=== PATIENT | male | born 1945 | race Caucasian/White ===

== ENCOUNTER 2016-09-11 12:44 | Outpatient (CLI) ==
[2016-09-14 06:57] LABS: % FREE PSA 36.7 % (.); PSA, FREE 1.98 ng/mL
== END 2016-09-11 12:45 | disposition home or self-care (01) ==
LOC: LAB 12:44
PROVIDERS: ATTEND Urology
DX: R97.20 Elevated prostate specific antigen [PSA] (principal)
CPT/HCPCS: 36415; 84153

== ENCOUNTER 2016-11-26 13:08 | Outpatient (CLI) | END 2016-11-26 13:09 | disposition home or self-care (01) | LOC: LAB 13:08 | PROVIDERS: ATTEND Nurse Practitioner Family | DX: J02.9 Acute pharyngitis, unspecified (principal) | CPT/HCPCS: 87880 ==

== ENCOUNTER → 2017-02-18 | Outpatient (RCR) ==
--- NOTE | 2017-02-05 15:18 | RS.OPPTEV2 ---
Date of Note: 02/05/17 Visit #: 1 Date of Evaluation: 02/05/17 Payer Source: MEDICARE Treatment Diagnosis: Low back pain History of Condition/Mechanism of Injury:: Patient reports having low back pain for over 15 years. States pain has been worse recently due to performing more lifting than he has been used to. 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 Prior Level of Function.....Patient was independent with: ADL's, Self Care, Ambulation/Mobility, Community Integration/Access Level of Function: Independent with all ADL's. Functional Limitations: Sleep, Self Care, ADL's, Standing, Bending, Squatting, Ambulation, Community Access/Integration Current Subjective/complaints:: Patient reports low back pain, more towards the left side. States he has not had any LE symptoms of pain, tingling, or weakness. States he does have more discomfort in the low back with prolonged driving, standing, and following any lifting. States he tolerates walking fine. He sometimes uses a heating pad at home. He has not been to a Chiropractor recently. Medical History Medical History: Cancer Medical History Comments:: Leukemia with stem cell transplant, over 5 years ago. Surgical History: Knee Replacement (partial knee replacement) Surgical History Comments:: Procedure to cauterize nerves off lumbar spine 12- 18 months ago- per patient. Smoking Status: Former smoker Hx Home Medications: Takes Tylenol PRN. Patient's Goals: His goal is to get relief of low back pain. Pain Assessment - Pain Description Pain Location: low back Pain Description: soreness Current Pain Intensity: 3/10 Worst Pain Intensity: 8/10 Functional Outcome Measure Oswestry LBP: 32 - G Codes & Severity Modifier G Codes & Modifier: Mobility current CJ. Mobility goal CH Source of G Code score: Oswestry LBP scale Observation - Observation Posture: Scapula Asymmetry (right scapula higher.) Comments: Demonstrates right rotation along lumbar spine. Gait - Gait Pattern General Gait Pattern Observation: No Deviations/Normal - ROM Lumbar Flexion: Hand reach to Mid-Shins Sidebending to Left: Reach to Lateral Joint Line Sidebending to Right: Reach to Lateral Joint Line Lumbar Spine ROM Limitations: Soft Tissue Tightness Comments: Lumbar extension is WFL's. Demonstrates hypomobility of lumbar spine with flexion. Reports no increased pain with ROM. - Strength Trunk Rotation: 4+ Good + Comments: LE strength is 5/5. - Special Tests MEERA Test: Negative Left, Negative Right SLR Test: Negative Left, Negative Right Seated Dural Stretch Test: Negative Left, Negative Right SI Joint Compression: Negative Comments: Right hip is more limited in ROM with MEERA's, but does not elicit pain. Palpation Comments:: Tenderness reported along the left side of the lumbosacral junction. Reports no pain with mobilization to the sacrum or specifically over either SI joint. Demonstrates moderate muscle guarding along bilateral lumbar paraspinals. Sensation - Sensation Right Lower Extremity: Intact/Normal Left Lower Extremity: Intact/Normal Additional Comments: Additional Comments: Right SLR in supine to 35-40 degrees, left SLR 40-45 degrees. Interventions - Exercise/Activities/Manual Therapy Exercises/Activities: Patient instructed in HS and Piriformis stretch for HEP. Manual Therapy: Na HOME EXERCISE PROGRAM: Hamstring and piriformis stretch - Charges Total Direct Minutes: 40 mins Total Treatment Time: 40 mins Procedures billed for this date of service:: EVAL Low Assessment Assessment: Patient presents to therapy with a diagnosis of low back pain. Reports worse pain over the last few months due to more lifting activities. He demonstrates good strength, but limited flexibility in the lumbar spine, hips, and HS. He demonstrates good potential to benefit from stretching to gain increased flexibility and decrease pain in the low back. He will also benefit from education in back safety and proper lifting techniques. Patient Education: Education of diagnosis, Body/Joint mechanics, Home Exercise Program, Education of Plan of Care Rehab Potential: Good Short Term Goals Goal #1: Patient will display independence with home exercise program. Goal to be met by: 02/19/17 Goal #2: SLR bilaterally 55-60 degrees. Goal to be met by: 02/19/17 Goal #3: Back pain <3/10 at worst. Goal to be met by: 02/19/17 Goal #4: Lumbar spine will demonstrate minimal right rotation. Goal to be met by: 02/19/17 Alf Goals Goal #1: Pt knows HEP and to continue ex's to maintain functional level at D/C. Goal to be met by: 03/17/17 Goal #2: Score on Oswestry LBP scale improved to 12. Goal to be met by: 03/17/17 Goal #3: Pt will tolerate prolonged standing or sitting with minimal back pain. Goal to be met by: 03/17/17 Goal #4: Pt to demonstrate good understanding of back safety and proper lifting. Goal to be met by: 03/17/17 Plan - Treatment to be Provided Procedures: Therapeutic Exercises, Therapeutic Activity, Manual Therapy, Patient Education Modalities: Electrical Stimulation, Ultrasound/Phonophoresis, Cryotherapy, Hot Packs, Mechanical Traction - Treatment Plan Frequency: 3 X week Duration: 4 weeks ORDER # VISITS AND/OR THROUGH DATE: 03/17/17 - Treatment Code (1) Low back pain Code(s): M54.5 - LOW BACK PAIN Qualifiers: Chronicity: unspecified Back pain laterality: unspecified Sciatica presence: without sciatica Qualified Code(s): M54.5 - Low back pain
--- NOTE | 2017-02-09 14:16 | RS.OPPTDN ---
Subjective Date of Note: 02/09/17 Visit #: 2 Date of Evaluation: 02/05/17 Payer Source: MEDICARE Treatment Diagnosis: Low back pain Current Subjective/complaints:: Patent reports having to drive approximately 340 miles out of town a couple of days ago,returned yesterday,and tolerated it better than expected.He also reports the L side of the back generally bothers him more than the R. Pain Assessment - Pain Description Pain Location: lumbar Pain Description: Dull, Aching Current Pain Intensity: not rated Other Comments regarding Pain:: " not too bad today " - Treatment Modality: Electrical Stim Unattended Parameters/Method Applied: 20 mins. high volt to lumbar ,channel 1 @ 115 - 125 pv to mid back,channel 2 @ 165 - 200 pv. Patient Position: Prone - Heat/Cryotherapy Treatment: Hot Pack (concurrent with e-stim) Interventions - Exercise/Activities/Manual Therapy Exercises/Activities: 35 mins. total pf pelvic tilts,SKTC,DKTC,90/90 hamstring stretches,resisted hip flexion,piriformis stretches,isometric hip abd / add.Patient education for body mechanics and low back protection. Total minutes of Exercise: 35 Manual Therapy: Na Total minutes of Manual Therapy: 0 HOME EXERCISE PROGRAM: Hamstring and piriformis stretch,SKTC,DKTC,pelvic tilts. - Charges Total Direct Minutes: 35 Total Treatment Time: 55 Procedures billed for this date of service:: hp,e-stim,ex 2 Assessment: Patient has good hamstring extensibility bilaterally.He reports some L lumbar soreness with trunk rotation today,but no sharp pain with any exercise.He is attentive and motivated to improve. Patient Education: Education of diagnosis, Body/Joint mechanics, Home Exercise Program, Home Safety, Activity Modification, Education of Plan of Care Patient demonstrates compliance with HEP?: Yes Short Term Goals Goal #1: Patient will display independence with home exercise program. Goal to be met by: 02/19/17 Progress towards Goal:: Progressing Goal #2: SLR bilaterally 55-60 degrees. Goal to be met by: 02/19/17 Progress towards Goal:: Progressing Goal #3: Back pain <3/10 at worst. Goal to be met by: 02/19/17 Progress towards Goal:: Progressing Goal #4: Lumbar spine will demonstrate minimal right rotation. Goal to be met by: 02/19/17 Assisted Goals Goal #1: Pt knows HEP and to continue ex's to maintain functional level at D/C. Goal to be met by: 03/17/17 Progress towards goal: Progressing Goal #2: Score on Oswestry LBP scale improved to 12. Goal to be met by: 03/17/17 Goal #3: Pt will tolerate prolonged standing or sitting with minimal back pain. Goal to be met by: 03/17/17 Goal #4: Pt to demonstrate good understanding of back safety and proper lifting. Goal to be met by: 03/17/17 Progress towards goal: Progressing Plan PLAN OF CARE EXPIRES ON:: 03/17/17 ORDER # VISITS AND/OR THROUGH DATE: 03/17/17 PLAN: Increased core strength and improved body mechanics to protect low back.
--- NOTE | 2017-02-12 11:17 | RS.OPPTDN ---
Subjective Date of Note: 02/12/17 Visit #: 3 Date of Evaluation: 02/05/17 Payer Source: MEDICARE Treatment Diagnosis: Low back pain Current Subjective/complaints:: Patient reports minimal pain this morning. Pain Assessment - Pain Description Pain Description: Dull Current Pain Intensity: not rated - Treatment Modality: Electrical Stim Unattended Parameters/Method Applied: 20 mins. high volt to back ,channel 1 @ 125 pv , channel 2 @ 105 pv. Patient Position: Supine - Heat/Cryotherapy Treatment: Hot Pack (concurrent with e-stim) Interventions - Exercise/Activities/Manual Therapy Exercises/Activities: 20 mins. total , leg press PRE's x 15 reps @ 60 #,75 #, 90 #.Calf - raises @ 45 # x 15 reps.HEP review of stretches done at previous sessions. Total minutes of Exercise: 20 Manual Therapy: Na Total minutes of Manual Therapy: 0 HOME EXERCISE PROGRAM: Hamstring and piriformis stretch,SKTC,DKTC,pelvic tilts. - Charges Total Direct Minutes: 20 Total Treatment Time: 40 Procedures billed for this date of service:: hp,e-stim, ex 1 Assessment: Patient tolerates resistive exercises today without back pain present.He has good understanding of HEP. Patient Education: Body/Joint mechanics, Home Exercise Program, Education of Plan of Care Patient demonstrates compliance with HEP?: Yes Short Term Goals Goal #1: Patient will display independence with home exercise program. Goal to be met by: 02/19/17 Progress towards Goal:: Progressing Goal #2: SLR bilaterally 55-60 degrees. Goal to be met by: 02/19/17 Progress towards Goal:: Progressing Goal #3: Back pain <3/10 at worst. Goal to be met by: 02/19/17 Progress towards Goal:: Progressing Goal #4: Lumbar spine will demonstrate minimal right rotation. Goal to be met by: 02/19/17 Long-Term Goals Goal #1: Pt knows HEP and to continue ex's to maintain functional level at D/C. Goal to be met by: 03/17/17 Progress towards goal: Progressing Goal #2: Score on Oswestry LBP scale improved to 12. Goal to be met by: 03/17/17 Goal #3: Pt will tolerate prolonged standing or sitting with minimal back pain. Goal to be met by: 03/17/17 Progress towards goal: Progressing Goal #4: Pt to demonstrate good understanding of back safety and proper lifting. Goal to be met by: 03/17/17 Progress towards goal: Progressing Plan PLAN OF CARE EXPIRES ON:: 03/17/17 ORDER # VISITS AND/OR THROUGH DATE: 03/17/17 PLAN: Continue PT to decrease back pain for improved tolernce to driving and other ADL's.
--- NOTE | 2017-02-15 11:34 | RS.OPPTDN ---
Subjective Date of Note: 02/15/17 Visit #: 4 Date of Evaluation: 02/05/17 Payer Source: MEDICARE Treatment Diagnosis: Low back pain Current Subjective/complaints:: Patient says his pain has been low in his back the last few days. Denies any soreness into his back related to beginning the leg press, but does admit sorenss to his legs. Pain Assessment - Pain Description Pain Location: occasional soreness dependent on activity - Treatment Modality: Electrical Stim Unattended Parameters/Method Applied: hivolt 4 large pads, 2 on the L lumbar paraspinals @ 140-165 pk volts and 2 on R @ 120-135 pk volts x 20 mins Patient Position: Supine - Heat/Cryotherapy Treatment: Hot Pack Interventions - Exercise/Activities/Manual Therapy Exercises/Activities: 20 mins. total passive stretching of HS, piriformis, and fig 4 bilaterally x 3. Isometrics for hip abd/add/flex x 5 in hooklying. Leg presses 15#progressing to 30, 45, 60, 75, and 90# x 10 reps. Manual Therapy: Na HOME EXERCISE PROGRAM: Hamstring and piriformis stretch,SKTC,DKTC,pelvic tilts. - Charges Total Direct Minutes: 20 Total Treatment Time: 40 Procedures billed for this date of service:: hp, estim (u), ex Assessment: Patient maintaining low level back pain currently, but does fluctuate with particular activity. He was able to travel 12 hours (6 hours to/ from [place] over the weekend) without the increase in pain he anticipated. Patient demo good resistance with all isometrics and performing progressive leg press well. Patient Education: Home Exercise Program Patient demonstrates compliance with HEP?: Yes Short Term Goals Goal #1: Patient will display independence with home exercise program. Goal to be met by: 02/19/17 Progress towards Goal:: Progressing Goal #2: SLR bilaterally 55-60 degrees. Goal to be met by: 02/19/17 Progress towards Goal:: Progressing Goal #3: Back pain <3/10 at worst. Goal to be met by: 02/19/17 Progress towards Goal:: Progressing Goal #4: Lumbar spine will demonstrate minimal right rotation. Goal to be met by: 02/19/17 Ecommerce Manager Goals Goal #1: Pt knows HEP and to continue ex's to maintain functional level at D/C. Goal to be met by: 03/17/17 Progress towards goal: Progressing Goal #2: Score on Oswestry LBP scale improved to 12. Goal to be met by: 03/17/17 Goal #3: Pt will tolerate prolonged standing or sitting with minimal back pain. Goal to be met by: 03/17/17 Progress towards goal: Progressing Goal #4: Pt to demonstrate good understanding of back safety and proper lifting. Goal to be met by: 03/17/17 Progress towards goal: Progressing Plan PLAN OF CARE EXPIRES ON:: 03/17/17 ORDER # VISITS AND/OR THROUGH DATE: 03/17/17 PLAN: Patient to continue for stretching and modalities prn for LBP and improve trunk stability.
--- NOTE | 2017-02-18 13:34 | RS.OPPTDN ---
Subjective Date of Note: 02/18/17 Visit #: 5 Date of Evaluation: 02/05/17 Payer Source: MEDICARE Treatment Diagnosis: Low back pain Current Subjective/complaints:: Patient says his knee has been bothering him and feels it may be related to leg press. He states he needs to leave early today due to having a procedure this afternoon. Pain Assessment - Pain Description Pain Location: Increased soreness to LEs - Treatment Modality: Electrical Stim Unattended Parameters/Method Applied: hivolt 2 large pads to L lumbar paraspinals @ 115 pk volts and 2 large to the R @ 100 pk volts x 20 mins Patient Position: Supine - Heat/Cryotherapy Treatment: Hot Pack (with estim) Interventions - Exercise/Activities/Manual Therapy Exercises/Activities: 10 mins. total passive stretching of HS, piriformis, and fig 4 bilaterally x 3. Isometrics for hip abd/add/flex x 5 in hooklying. Omitted Leg press due to c/o's and patient requesting to leave early. Manual Therapy: Na HOME EXERCISE PROGRAM: Hamstring and piriformis stretch,SKTC,DKTC,pelvic tilts. - Charges Total Direct Minutes: 10 Total Treatment Time: 30 Procedures billed for this date of service:: hp, estim (un), ex Assessment: Patient presents with increased soreness to the LE's he feels is related to progressing Leg press. No increased weight was placed last session from previous visits, but did omit today and patient was leaving early to have a minor procedure. Patient wishes to hold all next week from therapy to heal. Patient Education: Home Exercise Program, Activity Modification Patient demonstrates compliance with HEP?: Yes Short Term Goals Goal #1: Patient will display independence with home exercise program. Goal to be met by: 02/19/17 Progress towards Goal:: Progressing Goal #2: SLR bilaterally 55-60 degrees. Goal to be met by: 02/19/17 Progress towards Goal:: Progressing Goal #3: Back pain <3/10 at worst. Goal to be met by: 02/19/17 Progress towards Goal:: Progressing Goal #4: Lumbar spine will demonstrate minimal right rotation. Goal to be met by: 02/19/17 Progress towards Goal:: Progressing Correction Goals Goal #1: Pt knows HEP and to continue ex's to maintain functional level at D/C. Goal to be met by: 03/17/17 Progress towards goal: Progressing Goal #2: Score on Oswestry LBP scale improved to 12. Goal to be met by: 03/17/17 Goal #3: Pt will tolerate prolonged standing or sitting with minimal back pain. Goal to be met by: 03/17/17 Progress towards goal: Progressing Goal #4: Pt to demonstrate good understanding of back safety and proper lifting. Goal to be met by: 03/17/17 Progress towards goal: Progressing Plan PLAN OF CARE EXPIRES ON:: 03/17/17 ORDER # VISITS AND/OR THROUGH DATE: 03/17/17 PLAN: hold next week and patient will contact us to continue once he's healed from procedure.
== END ==
PROVIDERS: ATTEND Family Medicine
DX: M54.5 Low back pain (principal)

== ENCOUNTER 2017-02-24 10:30 | Outpatient (CLI) ==
[2017-02-24 10:54] LABS: HEMATOCRIT 38.2 % (42.0-52.0); HEMOGLOBIN 12.8 g/dl (14.0-18.0); MEAN CORPUSCULAR HEMOGLOBIN 32.3 pg (27.0-31.0); MEAN CORPUSCULAR HGB CONC 33.5 (31.8-35.4); MEAN CORPUSCULAR VOLUME 96.5 fl (80.0-94.0); RED BLOOD COUNT 3.96 10^6/ul (4.70-6.10); WHITE BLOOD COUNT 6.07 K/ul (4.2-10.2)
[2017-02-24 10:59] LABS: BILIRUBIN,URINE Negative (NEGATIVE); KETONES,URINE Negative (NEGATIVE); LEUKOCYTE ESTERASE ,URINE Negative (NEGATIVE); NITRITE,URINE Negative (NEGATIVE); PH,URINE 6.5 (5-9); PROTEIN,URINE Negative (NEGATIVE); URINE, BLOOD Negative (NEGATIVE)
[2017-02-24 11:05] LABS: ADD URINE MICROSCOPIC NO
[2017-02-24 11:32] LABS: ALBUMIN 3.4 g/dL (3.4-5.0); ALBUMIN/GLOBULIN RATIO 0.87; ANION GAP 17.1; BILIRUBIN,TOTAL 0.5 mg/dL (0.00-1.20); BUN/CREATININE RATIO 17.85; CALCIUM 9.6 mg/dL (8.2-10.2); CREATININE 1.68 mg/dL (0.60-1.10); MAGNESIUM 1.9 mg/dL (1.7-2.2); PHOSPHORUS 2.9 mg/dL (2.3-3.7); POTASSIUM 4.1 mmol/L (3.5-5.1); TOTAL PROTEIN 7.3 g/dL (5.8-8.1); URIC ACID 4.6 mg/dL (2.6-7.2)
== END 2017-02-24 10:31 | disposition home or self-care (01) ==
LOC: LAB 10:30
PROVIDERS: ATTEND Nurse Practitioner
DX: N18.3 Chronic kidney disease, stage 3 (moderate) (principal); E55.9 Vitamin D deficiency, unspecified
CPT/HCPCS: 36415; 80053; 81001; 82306; 82570; 83735; 83970; 84100; 84156; 84550; 85027

== ENCOUNTER 2017-03-18 10:00 | Outpatient (RCR) ==
--- NOTE | 2017-03-02 11:59 | RS.OPPTDN ---
Subjective Date of Note: 03/02/17 Visit #: 6 Date of Evaluation: 02/05/17 Payer Source: MEDICARE Treatment Diagnosis: Low back pain Current Subjective/complaints:: Patient says he is still getting around slowly and sore at the L low back from recent procedure. He says he had leaned over to pick something up off of the floor and felt a pull in his back. Pain Assessment - Pain Description Pain Location: L low back > R - Treatment Modality: Electrical Stim Unattended Parameters/Method Applied: hivolt 4 large pads L controlled @ 110 and 105 pk volts for the R x 20 mins Patient Position: Supine - Heat/Cryotherapy Treatment: Hot Pack (mid to low back with estim) Interventions - Exercise/Activities/Manual Therapy Exercises/Activities: 15 mins. total passive stretching of HS, piriformis, and fig 4 bilaterally x 3. Isometrics for hip abd/add/flex x 10 in hooklying. Leg presses beginning at 30# working up to 70# x 15 each. Manual Therapy: Na HOME EXERCISE PROGRAM: Hamstring and piriformis stretch,SKTC,DKTC,pelvic tilts. - Charges Timed Code Treatment Minutes: 15 Total Treatment Time: 35 Procedures billed for this date of service:: hp, estim (un), ex Assessment: Patient resumed routine exercises, but with rests due to having recent procedure and having 1+ week off from therapy. He did have an increase in soreness to the L LB. Patient Education: Education of diagnosis, Body/Joint mechanics, Home Exercise Program Patient demonstrates compliance with HEP?: Yes Short Term Goals Goal #1: Patient will display independence with home exercise program. Goal to be met by: 02/19/17 Progress towards Goal:: Progressing Goal #2: SLR bilaterally 55-60 degrees. Goal to be met by: 02/19/17 Progress towards Goal:: Progressing Goal #3: Back pain <3/10 at worst. Goal to be met by: 02/19/17 Progress towards Goal:: Progressing Goal #4: Lumbar spine will demonstrate minimal right rotation. Goal to be met by: 02/19/17 Progress towards Goal:: Progressing Group Home Goals Goal #1: Pt knows HEP and to continue ex's to maintain functional level at D/C. Goal to be met by: 03/17/17 Progress towards goal: Progressing Goal #2: Score on Oswestry LBP scale improved to 12. Goal to be met by: 03/17/17 Goal #3: Pt will tolerate prolonged standing or sitting with minimal back pain. Goal to be met by: 03/17/17 Progress towards goal: Progressing Goal #4: Pt to demonstrate good understanding of back safety and proper lifting. Goal to be met by: 03/17/17 Progress towards goal: Progressing Plan PLAN OF CARE EXPIRES ON:: 03/17/17 ORDER # VISITS AND/OR THROUGH DATE: 03/17/17 PLAN: Patient to continue next week for modalities to ease back pain and assist with flexibility as well as progress therex to build strength to LE's
--- NOTE | 2017-03-04 13:12 | RS.OPPTDN ---
Subjective Date of Note: 03/04/17 Visit #: 7 Date of Evaluation: 02/05/17 Payer Source: MEDICARE Treatment Diagnosis: Low back pain Current Subjective/complaints:: Patient reports an increase in right groin pain. States this may be due to exercise and activity. Patient asks to hold exercise today. Pain Assessment - Pain Description Current Pain Intensity: mild to mod - Treatment Modality: Electrical Stim Unattended Parameters/Method Applied: [id number] HVGC to 110p.v. with 4 large pads, cross current, with HP. Patient in prone position today. Patient Position: Prone - Heat/Cryotherapy Treatment: Hot Pack ([id number] with Estim ) Interventions - Exercise/Activities/Manual Therapy Exercises/Activities: Hold Manual Therapy: Na HOME EXERCISE PROGRAM: Hamstring and piriformis stretch,SKTC,DKTC,pelvic tilts. - Charges Timed Code Treatment Minutes: 0 Total Treatment Time: 20mins Procedures billed for this date of service:: HP, Estim unattended Assessment: Patient with report of increased discomfort and asks to hold exercise. Short Term Goals Goal #1: Patient will display independence with home exercise program. Goal to be met by: 02/19/17 Progress towards Goal:: Progressing Goal #2: SLR bilaterally 55-60 degrees. Goal to be met by: 02/19/17 Progress towards Goal:: Progressing Goal #3: Back pain <3/10 at worst. Goal to be met by: 02/19/17 Progress towards Goal:: Progressing Goal #4: Lumbar spine will demonstrate minimal right rotation. Goal to be met by: 02/19/17 Progress towards Goal:: Progressing Saw Repairer Goals Goal #1: Pt knows HEP and to continue ex's to maintain functional level at D/C. Goal to be met by: 03/17/17 Progress towards goal: Progressing Goal #2: Score on Oswestry LBP scale improved to 12. Goal to be met by: 03/17/17 Goal #3: Pt will tolerate prolonged standing or sitting with minimal back pain. Goal to be met by: 03/17/17 Progress towards goal: Progressing Goal #4: Pt to demonstrate good understanding of back safety and proper lifting. Goal to be met by: 03/17/17 Progress towards goal: Progressing Plan PLAN OF CARE EXPIRES ON:: 03/17/17 ORDER # VISITS AND/OR THROUGH DATE: 03/17/17 PLAN: Resume exercise next session to reduce pain and increase functional activity level.
--- NOTE | 2017-03-08 14:30 | RS.OPPTDN ---
Subjective Date of Note: 03/08/17 Visit #: 9 Date of Evaluation: 02/05/17 Payer Source: MEDICARE Treatment Diagnosis: Low back pain Current Subjective/complaints:: Patient says his pain has been better from his last appt. He rates L sided back pain 2/10. He reports he will be traveling to [place] next month and says he is hopeful that he will have less pain in a more warmer climate. He says that he may ask his MD if he needs to have another "cauterization" to the lumbar spine similar to last year. Pain Assessment - Pain Description Pain Location: 2/10 L sided mostly Pain Description: Tightness - Treatment Modality: Electrical Stim Unattended Parameters/Method Applied: Hivolt estim (un) 4 large pads @ 125-140 pk volts controlled channel 1 on L and 2 to the R x 20 mins Treatment Area: lumbar paraspinals Patient Position: Supine - Heat/Cryotherapy Treatment: Hot Pack (20 mins with estim) Interventions - Exercise/Activities/Manual Therapy Exercises/Activities: Patient resumes passive stretching of: SKTC, HS, Piriformis, Fig 4, and lower trunk rotation x 3 bilaterally. Trunk stability: isometric hip abd/flexion/add in hooklying x 10. Encouraged more consistent stretching and trunk stability for home. Total minutes of Exercise: 16 Manual Therapy: Na HOME EXERCISE PROGRAM: Hamstring and piriformis stretch,SKTC,DKTC,pelvic tilts. - Charges Timed Code Treatment Minutes: 16 Total Treatment Time: 36 Procedures billed for this date of service:: hp, estim (un), ex Assessment: Patient presents with lowered pain level with pain present primarily to the L lumbar paraspinals. Soreness at LE's possibly related to progressing leg press is not present at this time. He remains with tight hamstrings bilaterally with weakness more to the L hip and LE than compared to R during isometrics. Encouraged him to be more consistent with HEP as he admits difficulty with remembering to perform them. Patient Education: Education of diagnosis, Body/Joint mechanics, Home Exercise Program Short Term Goals Goal #1: Patient will display independence with home exercise program. Goal to be met by: 02/19/17 Progress towards Goal:: Progressing Goal #2: SLR bilaterally 55-60 degrees. Goal to be met by: 02/19/17 Progress towards Goal:: Progressing Goal #3: Back pain <3/10 at worst. Goal to be met by: 02/19/17 Progress towards Goal:: Progressing Goal #4: Lumbar spine will demonstrate minimal right rotation. Goal to be met by: 02/19/17 Progress towards Goal:: Progressing Skilled Nursing Goals Goal #1: Pt knows HEP and to continue ex's to maintain functional level at D/C. Goal to be met by: 03/17/17 Progress towards goal: Progressing Goal #2: Score on Oswestry LBP scale improved to 12. Goal to be met by: 03/17/17 Goal #3: Pt will tolerate prolonged standing or sitting with minimal back pain. Goal to be met by: 03/17/17 Progress towards goal: Progressing Goal #4: Pt to demonstrate good understanding of back safety and proper lifting. Goal to be met by: 03/17/17 Progress towards goal: Progressing Plan PLAN OF CARE EXPIRES ON:: 03/17/17 ORDER # VISITS AND/OR THROUGH DATE: 03/17/17 PLAN: Patient to continue for passive assisted stretching and progressing trunk stability. Patient will contact his MD for a follow up.
--- NOTE | 2017-03-10 15:05 | RS.OPPTDN ---
Subjective Date of Note: 03/10/17 Visit #: 9 Date of Evaluation: 02/05/17 Payer Source: MEDICARE Treatment Diagnosis: Low back pain Current Subjective/complaints:: Patient says his back pain is much better this week. He says it is staying mostly to the L side of the lower back without any LE pain currently. Admits he should be working on stretching more at home. Pain Assessment - Pain Description Pain Location: "low" L sided back pain - Treatment Modality: Electrical Stim Unattended Parameters/Method Applied: 4 large pads channel 1 to the L @ 150 pk volts and channel 2 @ 140 x 20 mins Treatment Area: lumbar paraspinals Patient Position: Supine - Heat/Cryotherapy Treatment: Hot Pack (mid to low back in supine) Interventions - Exercise/Activities/Manual Therapy Exercises/Activities: Patient continues with passive stretching of: SKTC, HS, Piriformis, Fig 4, and lower trunk rotation x 3 bilaterally. Heel cord stretching bilaterally x 3. Trunk stability: isometric hip abd/flexion/add in hooklying x 10. Encouraged more consistent stretching and trunk stability for home. Total minutes of Exercise: 17 Manual Therapy: Na HOME EXERCISE PROGRAM: Hamstring and piriformis stretch,SKTC,DKTC,pelvic tilts. - Charges Timed Code Treatment Minutes: 17 Total Treatment Time: 37 Procedures billed for this date of service:: hp, estim (un), ex Assessment: Patient progressing well and should plan on D/c next session as that will complete his POC. Improved hamstring flexibility noted bilaterally, but still needs to work on this consistently at home. Patient Education: Home Exercise Program, Education of Plan of Care Short Term Goals Goal #1: Patient will display independence with home exercise program. Goal to be met by: 02/19/17 Progress towards Goal:: Progressing Goal #2: SLR bilaterally 55-60 degrees. Goal to be met by: 02/19/17 Progress towards Goal:: Progressing Goal #3: Back pain <3/10 at worst. Goal to be met by: 02/19/17 Progress towards Goal:: Progressing Goal #4: Lumbar spine will demonstrate minimal right rotation. Goal to be met by: 02/19/17 Progress towards Goal:: Progressing Associate Medical Director Goals Goal #1: Pt knows HEP and to continue ex's to maintain functional level at D/C. Goal to be met by: 03/17/17 Progress towards goal: Progressing Goal #2: Score on Oswestry LBP scale improved to 12. Goal to be met by: 03/17/17 Goal #3: Pt will tolerate prolonged standing or sitting with minimal back pain. Goal to be met by: 03/17/17 Progress towards goal: Progressing Goal #4: Pt to demonstrate good understanding of back safety and proper lifting. Goal to be met by: 03/17/17 Progress towards goal: Progressing Plan PLAN OF CARE EXPIRES ON:: 03/17/17 ORDER # VISITS AND/OR THROUGH DATE: 03/17/17 PLAN: Plan to continue modalities x 1 more session and progress HEP. Encouraged consistent self stretching at home in junction with REHEATER.
--- NOTE | 2017-03-23 09:24 | RS.OPPTDC ---
Date of Discharge: 03/10/17 Date of Evaluation: 02/05/17 Number of Visits: 9 Treatment Diagnosis: Low back pain Current Complaints/Gains: Patient reports he can tell slight pain relief with therapy, but states pain still fluctuates depending on activity or cold weather. He was recently able to drive 7 hours with less difficulty. He admits to not performing HEP. Reports less tenderness along the lumbosacral junction. Functional Outcome Measure Oswestry LBP: 28 - G Codes & Severity Modifier G Codes & Modifier: Mobility D/C CJ. Mobility goal CH Source of G Code score: Oswestry LBP scale Interventions - Exercise/Activities/Manual Therapy Exercises/Activities: Pt encouraged to begin consistent HEP and given theraband for home. Explained various ways to improve and manage future flareups as it is expected given his history. Manual Therapy: Na HOME EXERCISE PROGRAM: Hamstring and piriformis stretch,SKTC,DKTC,pelvic tilts. - Objective Findings Observations,measurements,etc.: SLR improved to 52 degrees on the right and 55 degrees on the left. Less tenderness with moderate palpation along the left lumbosacral junction. - Charges Timed Code Treatment Minutes: NA Total Treatment Time: NA Procedures billed for this date of service:: NA Assessment Assessment: Patient with slight decrease in symptoms from his reports. Demonstrates increased flexibility in HS and less tenderness compared to initial evaluation. No further skilled therapy at this time due to minimal progress and patient admitting to not performing HEP consistently as instructed. Short Term Goals Goal #1: Patient will display independence with home exercise program. Goal to be met by: 02/19/17 Progress towards Goal:: Met Goal #2: SLR bilaterally 55-60 degrees. Goal to be met by: 02/19/17 Progress towards Goal:: Partially Met Comments:: Left to 55 degrees. Goal #3: Back pain <3/10 at worst. Goal to be met by: 02/19/17 Progress towards Goal:: Not Met Goal #4: Lumbar spine will demonstrate minimal right rotation. Goal to be met by: 02/19/17 Progress towards Goal:: Not Met Client Support Professional Goals Goal #1: Pt knows HEP and to continue ex's to maintain functional level at D/C. Goal to be met by: 03/17/17 Progress towards goal: Met Goal #2: Score on Oswestry LBP scale improved to 12. Goal to be met by: 03/17/17 Progress towards goal: Not Met Goal #3: Pt will tolerate prolonged standing or sitting with minimal back pain. Goal to be met by: 03/17/17 Progress towards goal: Not Met Goal #4: Pt to demonstrate good understanding of back safety and proper lifting. Goal to be met by: 03/17/17 Progress towards goal: Met Plan Reason for Discharge:: No Further Skilled Therapy Indicated
== END 2017-03-21 ==
PROVIDERS: ATTEND Family Medicine
DX: M54.5 Low back pain (principal)

== ENCOUNTER 2017-06-08 10:25 | Outpatient (CLI) | payer OTHER | END 2017-06-08 10:26 | disposition home or self-care (01) | LOC: RHC-LAB 10:25 | PROVIDERS: ATTEND Nurse Practitioner Family | DX: R05 Cough (principal) | CPT/HCPCS: 87651; 87804 ==

== ENCOUNTER 2017-07-05 10:05 | Day surgery (SDC) ==
[2017-07-05] MEDS ORDERED: LIDOCAINE 1% 20 ML MDV ID STA (10:43)
[2017-07-05] MEDS ORDERED: DIPRIVAN 20 ML VIAL IVP ONE (11:45)
[2017-07-05] MEDS ORDERED: VERSED ONE (11:45)
[2017-07-05 16:00] VITALS: BP 118/76; TEMP 97.6
--- NOTE | 2017-07-06 10:49 | OP ---
PROCEDURE: COLONOSCOPY TO THE CECUM WITH SNARE POLYPECTOMY. ENDOSCOPIST: Murali JARVIS M.D. INDICATION: HISTORY OF POLYPS. INSTRUMENT: [facility]190. MEDICATION: PER ANESTHESIA. PROCEDURE: The patient was positioned for colonoscopy. The digital rectal exam was negative. The colonoscope was inserted through the anus and advanced to the cecum. The cecum was identified using the ileocecal valve and the appendiceal orifice as landmarks. The scope was slowly withdrawn. [place] Bowel Prep score 2+2+2=6. The prep was fair throughout we had to suctioned a considerable amount of residual fluid. In the ascending colon a small polyp was removed using snare cautery. A second small poly removed at 60cm using snare cautery. Diverticulosis of the left colon. The retroflex exam was otherwise negative withdraw time 10 minutes and 53 seconds. PLAN: 1. Suggest repeat exam in 3 years given the quality of prep. CC: Dr. Rich VANN
== END 2017-07-05 12:55 | disposition home or self-care (01) ==
LOC: SURG 10:05
PROVIDERS: ATTEND Internal Medicine Gastroenterology
DX: Z09 Encounter for follow-up examination after completed treatment for conditions other than malignant neoplasm (principal); Z86.010 Personal history of colon polyps; D12.4 Benign neoplasm of descending colon; K63.5 Polyp of colon; K57.30 Diverticulosis of large intestine without perforation or abscess without bleeding

== ENCOUNTER 2017-07-24 16:45 | Emergency (ER) ==
[2017-07-24 16:49] VITALS: BP 148/83; TEMP 98.3; BMI 25.4
--- NOTE | 2017-07-24 17:05 | ED.PDOC ---
General ED Provider: Dr. GRICELDA YOUNGER Chief Complaint: Fall Stated Complaint: right chest wall pain Time Seen by Physician: 17:00 (seen with libra see photo) Mode of Arrival: Walk-In Information Source: Patient Exam Limitations: No limitations Primary Care Provider: CASEY HIDALGO Nursing and Triage Documentation Reviewed and Agree: Yes Reviewed sepsis parameters & appropriate labs ordered?: Yes System Inflammatory Response Syndrome: Not Applicable Sepsis Protocol: For patient's 13 years and over: Temp is 96.8 and below OR 101 and greater Pulse >90 BPM Resp >20/minute Acutely Altered Mental Status Are patient's symptoms suggestive of a new infection, such as: -Pneumonia -Skin, Soft Tissue -Endocarditis -UTI -Bone, Joint Infection -Implantable Device -Acute Abdominal Infection -Wound Infection -Meningitis -Blood Stream Catheter Infection -Unknown System Inflammatory Response Syndrome: Not Applicable Trauma/Injury Complaint Exam - Trauma Complaint/Exam Location of Pain or Injury: Reports: Chest (right sided chest wall pain). Denies: Head, Scalp, Face, Neck, RUE, LUE, Abdomen, Back, RLE, LLE Mechanism of Injury: Reports: Fall (standing postion denies neck or back pain no LOC ) Onset/Duration: 2 hrs ago Symptoms Are: Still present Timing of Treatment: Hours Initial Severity: Moderate Current Severity: Moderate Character: Reports: Aching Aggravating: Reports: Movement Alleviating: Reports: Rest Associated Signs and Symptoms: Denies: LOC, Confusion, Memory loss, Lethargy, Vomiting, Bleeding, Bruising, Swelling, Extremity disuse, Painful respiration, Hoarseness, Dysphagia, Hemoptysis, Significant blood loss Related History: Reports: Similar episode Penetrating Injury Risk Factors: Reports: None Related Surgical History: Reports: None Nexus Low Risk Criteria: No post-midline CS tender, No evidence of intoxicat., No Altered LOC, No focal neuro deficit, No distracting injuries Glascow Coma Scale (see protocol): 15 Compartment Syndrome Risk Factors: Absent: Pain, Paralysis, Pallor, Pulselessness, Paresthesias Trauma Findings: Absent: [place] eyes, Hemotympanum, Nasal deformity, Dental tenderness, Dental injury, Dental malocclusion, Neck tenderness, Neck spasm, SubQ Air, Crepitus, Airway obstructed, Trachea displaced, Labored respirations, Decreased breath sounds, Muffled heart sounds, Weak pulses, Abdominal distention , Pelvic tenderness, Pelvic instability Review of Systems - Review Of Systems Constitutional: Reports: No symptoms Eyes: Reports: No symptoms Ears, Nose, Mouth, Throat: Reports: No symptoms Respiratory: Reports: No symptoms Cardiac: Reports: Chest pain ( right chest wall see photo) GI: Reports: No symptoms : Reports: No symptoms Musculoskeletal: Reports: No symptoms Skin: Reports: Other (abrasion right lateral chest wall) Neurological: Reports: No symptoms Endocrine: Reports: No symptoms Hematologic/Lymphatic: Reports: No symptoms All Other Systems: Reviewed and Negative Past Medical History - Past Medical History Previously Healthy: Yes Endocrine: Reports: None Cardiovascular: Reports: None Respiratory: Reports: None Hematological: Reports: None Gastrointestinal: Reports: None Genitourinary: Reports: None Neuro/Psych: Reports: None Musculoskeletal: Reports: None Cancer: Reports: None - Surgical History General Surgical History: Reports: None - Family History Family History: Reports: None - Social History Smoking Status: Never smoker Hx Substance Use: No Alcohol Screening: Occasionally - Immunizations Tetanus Shot up to Date: No Physical Exam - Physical Exam Appearance: Well-appearing, No pain distress, Well-nourished Eyes: ALTAGRACIA, EOMI, Conjunctiva clear ENT: Ears normal, Nose normal, Oropharynx normal Respiratory: Airway patent, Breath sounds clear, Breath sounds equal, Respirations nonlabored Cardiovascular: RRR, Pulses normal, No rub, No murmur GI/: Soft, Nontender, No masses, Bowel sounds normal, No Organomegaly Musculoskeletal: Normal strength Skin: Warm Neurological: Sensation intact, Motor intact, Reflexes intact, Cranial nerves intact, Alert, Oriented Psychiatric: Affect appropriate, Mood appropriate Critical Care Note - Critical Care Note Total Time (mins): 0 Course - Course Orders, Labs, Meds: Orders Category Date Time Status CT ABDOMEN/PELVIS WO CONTRAST Stat RADS 07/24/17 17:[address] CHEST W/O CONTRAST Stat RADS 07/24/17 17:09 Completed Vital Signs: Temp Pulse Resp BP Pulse Ox 07/24/17 16:46 98.3 F 79 18 148/83 H 95 Departure - Departure Time of Disposition: 18:00 Disposition: HOME SELF-CARE Discharge Problem: Chest wall pain Instructions: Chest Wall Pain (ED) Condition: Good Pt referred to PMD for follow-up: Yes IPMP verified?: No Additional Instructions: Please call your Family Physician as soon as possible to schedule a follow-up appointment. Prescriptions: Hydrocodone/Acetaminophen [[place] 10-325 Tablet] 1 each PO Q8HR #12 tablet Allergies/Adverse Reactions: Allergies No Known Allergies Allergy (Verified 07/24/17 16:49) Home Medications: Ambulatory Orders Aspirin [Aspirin Ec] 81 mg PO DAILY 09/11/13 Calcium Carbonate/Vitamin D3 [Calcium + Vitamin D Tablet] 1 each PO DAILY Flonase 16 gm NS DAILY 09/11/13 Montelukast Sodium 10 mg PO BEDTIME 09/11/13 Valacyclovir HCl [Valtrex] 500 mg PO DAILY 09/11/13 Levothyroxine Sodium [Synthroid] 88 mcg PO DAILY 06/07/14 Venlafaxine HCl [Venlafaxine Hcl Er] 150 mg PO DAILY 08/20/14 Propylene Glycol [Lubricant Eye Drops] 10 ml OP DIRECTED PRN 10/12/16 Hydrocodone/Acetaminophen [[place] 10-325 Tablet] 1 each PO Q8HR #12 tablet Disposition Discussed With: Patient
--- NOTE | 2017-07-24 17:33 | CT ---
EXAM: CT scan of the chest without contrast HISTORY: Pain. Patient fell, right lower chest pain TECHNIQUE: Helical imaging of the chest was performed without contrast. 5 mm thin axial images and coronal and sagittal images were provided for interpretation. Comparison none. FINDINGS: The heart is normal size. No mediastinal abnormalities are seen. Lungs are clear. There is no pleural separation. No acute abnormalities are seen within the osseous structures. IMPRESSION: No acute traumatic abnormalities are seen within the thorax.
--- NOTE | 2017-07-24 17:42 | CT ---
EXAM: CT scan of the abdomen and pelvis without contrast HISTORY: Patient fell, right Lower chest upper abdominal pain TECHNIQUE: Helical imaging of the abdomen pelvis was performed without contrast. 3 mm thin axial im ages and coronal and sagittal reconstructions were provided for interpretation. FINDINGS: Several cysts are seen within the liver. The adrenal glands and kidneys and pancreas appe ared normal. No acute abnormalities are seen within the spleen. The small and large bowel loops are normal caliber. The helical images obtained through the pelvis demonstrate a normal appearance of the rectum, urinary bladder. There is no free fluid seen within the pelvis. There is a penile implant. The appendix a ppears normal. No acute abnormalities are seen within the osseous structures. Lung bases are clear. IMPRESSION: No acute traumatic abnormalities are seen within the abdomen and pelvis.
== END 2017-07-24 18:02 | disposition home or self-care (01) ==
LOC: ED 16:45
DX: R07.89 Other chest pain (principal); S20.311A Abrasion of right front wall of thorax, initial encounter; W19.XXXA Unspecified fall, initial encounter
CPT/HCPCS: 99283

== ENCOUNTER 2017-08-12 07:50 | Outpatient (CLI) | payer OTHER ==
--- NOTE | 2017-08-12 09:36 | CT ---
EXAM: CT of the abdomen pelvis with and without contrast History: Right-sided flank pain and mid to lower abdominal pain. Comparison: CT abdomen pelvis 07/24/2017 Technique: Multiplanar CT images through the abdomen pelvis were obtained with and without the admin istration of IV contrast Findings: Subsegmental atelectasis seen within the lower lungs. Mildly displaced fractures of the r ight posterior 11th and 12th ribs and the right lateral ninth and tenth ribs. 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 No renal stones and no hydronephrosis. The appendix is not dilated or inflamed. No change in the he patic cysts. No discrete gallstones identified by CT. Stable small benign cyst within the spleen. N o pancreatic lesions. There is some atrophy of the pancreas. Adrenal glands are unremarkable. No r enal masses. No bladder wall thickening. Scattered colonic stool. No bowel obstruction. No free a ir and no ascites. Penile pump device again seen. Prostate is enlarged. No lymphadenopathy. Impression: 1. Multiple mildly displaced right-sided rib fractures. 2. No acute intra-abdominal or pelvic process. 3. No change in the simple hepatic cysts. 4. Enlarged prostate
== END 2017-08-12 07:51 | disposition home or self-care (01) ==
LOC: RAD 07:50
PROVIDERS: ATTEND Family Medicine
DX: R10.9 Unspecified abdominal pain (principal)
CPT/HCPCS: 36415; 82565

== ENCOUNTER 2017-08-23 09:27 | Outpatient (CLI) | END 2017-08-23 09:28 | disposition home or self-care (01) | LOC: LAB 09:27 | PROVIDERS: ATTEND Urology | DX: R97.20 Elevated prostate specific antigen [PSA] (principal) | CPT/HCPCS: 36415; 84153 ==

== ENCOUNTER 2017-12-21 10:28 | Outpatient (CLI) | END 2017-12-21 10:29 | disposition home or self-care (01) | LOC: LAB 10:28 | PROVIDERS: ATTEND Urology | DX: R97.20 Elevated prostate specific antigen [PSA] (principal) | CPT/HCPCS: 36415; 84153 ==

== ENCOUNTER 2018-06-27 14:53 | Outpatient (CLI) | payer OTHER | END 2018-06-27 14:54 | disposition home or self-care (01) | LOC: LAB 14:53 | PROVIDERS: ATTEND Urology | DX: R97.20 Elevated prostate specific antigen [PSA] (principal) | CPT/HCPCS: 36415; 84153 ==